=== PATIENT | female | born 1955 | race Caucasian/White ===

== ENCOUNTER → 2017-01-27 | Outpatient (CLI) | payer BC | LOC: LABWHC1 11:08 | PROVIDERS: ATTEND Family Medicine | DX: R06.00 Dyspnea, unspecified (principal) | CPT/HCPCS: 36415; 85379 ==

== ENCOUNTER → 2017-09-28 | Outpatient (CLI) | payer BC ==
--- NOTE | 2017-09-28 14:23 | MM ---
Reason for exam: screening (asymptomatic). Last mammogram was performed 2 years and 2 months ago. History: Patient is postmenopausal, has history of other cancer at age 57, and is nulliparous. Family history of breast cancer in maternal aunt. Physical Findings: A clinical breast exam by your physician is recommended on an annual basis and results should be correlated with mammographic findings. MG Screening Mammo w CAD Bilateral CC and MLO view(s) were taken. Prior study comparison: August 05, 2015, bilateral MG screening mammo w CAD. January 22, 2013, bilateral digital screening mammo w/CAD. The breast tissue is heterogeneously dense. This may lower the sensitivity of mammography. There is no discrete abnormality. ASSESSMENT: Negative, BI-RAD 1 RECOMMENDATION: Routine screening mammogram of both breasts in 1 year.
== END | disposition home or self-care (01) ==
LOC: RADMAMWWP 09:51
PROVIDERS: ATTEND Family Medicine
DX: Z12.31 Encounter for screening mammogram for malignant neoplasm of breast (principal)
CPT/HCPCS: 77067

== ENCOUNTER → 2019-12-27 | Outpatient (CLI) | payer BC ==
[2019-12-27 11:34] LABS: Basophils # (A) 0.1 k/uL (0-0.2); Basophils % (A) 2 %; Eosinophils # (A) 0.2 k/uL (0-0.7); Eosinophils % (A) 4 %; HCT 43.5 % (34.0-46.0); HGB 14.5 gm/dL (11.4-16.0); Lymphocytes # (A) 1.3 k/uL (1.0-4.8); Lymphocytes % (A) 25 %; MCH 31.9 pg (25.0-35.0); MCHC 33.4 g/dL (31.0-37.0); MCV 95.4 fL (80.0-100.0); Mean Platelet Volume 6.7; Monocytes # (A) 0.3 k/uL (0-1.0); Monocytes % (A) 5 %; Neutrophils # (A) 3.2 k/uL (1.3-7.7); Neutrophils % (A) 62 %; Platelet Count 212 k/uL (150-450); RBC 4.56 m/uL (3.80-5.40); RDW 13.3 % (11.5-15.5); WBC 5.1 k/uL (3.8-10.6)
== END | disposition home or self-care (01) ==
LOC: LABPAT 09:56
PROVIDERS: ATTEND Obstetrics & Gynecology
DX: Z01.818 Encounter for other preprocedural examination (principal); N95.0 Postmenopausal bleeding
CPT/HCPCS: 36415; 85025; 93005

== ENCOUNTER 2020-01-08 07:30 | Day surgery (SDC) | payer BC ==
[2020-01-03 16:26] VITALS: BMI 33.0
[~2020-01-08 07:30] MED LIST: DEXAMETHASONE SOD PHOSPHATE 10 MG/ML 1 ML VIAL IV ONE; HYDROmorphone 0.5 MG/0.5 ML SYRINGE IVP PRN; LACTATED RINGERS 1,000 ML IV SCH; LIDOCAINE 1% (10MG/ML) FOR IV START INTRADERMA PRN; ONDANSETRON 4 MG/2 ML VIAL IVP ONE; Pre Op ABX Message 1 EACH MISC MISCELLANE ONE; SCOPOLAMINE 1.5MG/72HR PATCH TRANSDERM ONE
[2020-01-08] MEDS ORDERED: ONDANSETRON 4 MG/2 ML VIAL ONE (07:50)
[2020-01-08] MEDS ORDERED: MIDAZOLAM 2 MG/2 ML VIAL IV ONE (08:25)
[2020-01-08] MEDS ORDERED: fentaNYL (PF) 50 MCG/ML 2 ML AMP ONE (10:19)
[2020-01-08] MEDS ORDERED: LIDOCAINE 1% INJ 10MG/ML (20 ML MDV) ONE (10:19)
[2020-01-08] MEDS ORDERED: MIDAZOLAM 2 MG/2 ML VIAL ONE (10:19)
[2020-01-08] MEDS ORDERED: PROPOFOL 10 MG/ML 20 ML VIAL IV ONE (10:19)
[2020-01-08] MEDS ORDERED: KETOROLAC 30 MG/ML 1 ML VIAL ONE (10:19)
[2020-01-08] MEDS ORDERED: LACTATED RINGERS 1,000 ML IV ONE (10:47)
[2020-01-08] MEDS ORDERED: SILVER NITRATE APPLICATOR 1 EACH STICK..EA. TOPICAL ONE (10:53)
--- NOTE | 2020-01-08 11:01 | P.OP ---
Date of Procedure: 01/08/20 Preoperative Diagnosis: Postmenopausal bleeding, thickened endometrium sonographically Postoperative Diagnosis: Same, cervical stenosis Procedure(s) Performed: Fractional D&C, hysteroscopy Anesthesia: DUGLASA Surgeon: Hannah Lopez Estimated Blood Loss (ml): 10 IV fluids (ml): 900 Urine output (ml): 500 Pathology: other (Endocervical and endometrial curettings) Condition: stable Disposition: PACU Operative Findings: Cervical stenosis. Essentially negative appearing cavity without polyps, fibroids, or excessive tissue. Description of Procedure: Patient is brought to the operating suite where a general anesthetic is administered. She's placed in the dorsal lithotomy position. The cervix, vagina, perineal bodies are all prepped and draped in usual sterile fashion. The appropriate timeout is performed to assure proper patient and procedural identification. Bladder is drained for approximate 500 mL of clear yellow urine. The weighted speculum was placed into the vagina. The anterior lip of the cervix is grasped with a double-tooth tenaculum.. A Kevorkian curette is used and scant amount of endocervical curettings are sent to pathology. I am able to traverse the cervix with the sound, therefore the small lacrimal probes are used and the cervix is eventually dilated gently. Uterus then sounds to a depth of 6 cm. Cervix is systematically dilated using Hanks dilators. The hysteroscope was placed and the cavity is distended with sterile saline. No obvious polyps, fibroids, or excessive tissue was noted. The hysteroscope was removed. A small sharp curette is used and a scant amount of endometrial curettings are procured. The hysteroscope was replaced and the cavity appears to be completely curetted. Instrumentation is removed from the cervix. Nitrous stick is used on the anterior lip for a small perforation from the double-tooth tenaculum. Hemostasis is excellent. All sponge needle and enhancement counts are correct. Patient is brought back to the recovery room in very good condition with stable vital signs including a blood pressure of 167/94, pulse 64, 95% O2 saturation. Patient is given Toradol prior to leaving the operating room. She will follow- up with me in the office in 2 weeks.
[2020-01-08 11:06] VITALS: TEMP 97.9
[2020-01-08 12:05] VITALS: BP 139/75; PULSE 64; RESP 20
== END 2020-01-08 13:00 | disposition home or self-care (01) ==
LOC: OR 07:30
PROVIDERS: ATTEND Obstetrics & Gynecology
DX: N95.0 Postmenopausal bleeding (principal); N88.2 Stricture and stenosis of cervix uteri; N80.9 Endometriosis, unspecified; N73.9 Female pelvic inflammatory disease, unspecified; R93.89 Abnormal findings on diagnostic imaging of other specified body structures; I34.1 Nonrheumatic mitral (valve) prolapse; C82.10 Follicular lymphoma grade II, unspecified site; F41.9 Anxiety disorder, unspecified; Z79.899 Other long term (current) drug therapy; Z98.890 Other specified postprocedural states; Z91.041 Radiographic dye allergy status; Z82.49 Family history of ischemic heart disease and other diseases of the circulatory system; Z80.6 Family history of leukemia; Z80.8 Family history of malignant neoplasm of other organs or systems; Z80.49 Family history of malignant neoplasm of other genital organs; Z80.41 Family history of malignant neoplasm of ovary; Z87.891 Personal history of nicotine dependence
CPT/HCPCS: 88305; 58558; J2250; J1100; J2405; J2001; J3010; J1885; J2704; J1170

== ENCOUNTER → 2022-07-01 | Outpatient (CLI) | payer MEDICARE, BC ==
--- NOTE | 2022-07-01 16:24 | P.SLEEP ---
History of Present Illness DATE: 07/01/2022 CONSULTATION/NEW PATIENT EVALUATION HISTORY OF PRESENT ILLNESS/SLEEP-WAKE EVALUATION: 66-year-old lady had been evaluated in the sleep center for a restless sleep and possible obstructive sleep apnea hypopnea syndrome. SLEEP SCHEDULE: Usually sleep schedule from 1012 until 5 AM. Patient often sleeps about 5 hours only. FALLING ASLEEP: No problems with falling asleep, no TV in bedroom. DURING SLEEP: Positive history of snoring and multiple awakenings from sleep up to 3 times with up to 2 episodes of nocturia. No history of hypnogogical hallucinations, sleep paralysis, or cataplexy. DURING THE DAY/WAKE STATE: Nervousness and anxiety during the day. [place] sleepiness scale is 1. Usually patient doesn't take any naps. PAST MEDICAL HISTORY: Anxiety, hypertension in offices, follicular lymphoma treated by chemotherapy in 2018, endometriosis. PAST SURGICAL HISTORY: Bilateral cataract surgery 2017, surgery for removing benign tumor from uterus. MEDICATIONS: Alprazolam 0.25 mg as needed, Terrell saline nasal mist as needed. SOCIAL HISTORY: Negative for smoking for more than 50 years, alcohol consumption occasional. FAMILY HISTORY: Hypertension, stroke, cancer. REVIEW OF SYSTEMS: Snoring, multiple awakenings from sleep. No fevers. No double vision. No recent chest pain. No shortness of breath. No abdominal pain. No bleeding episodes. No blood in urine. No seizure episodes. PHYSICAL EXAMINATION: GENERAL: A pleasant patient without any distress. VITAL SIGNS: BP 173/97 , HR 74 , RR 18 , weight 206.6 pounds, height 5 foot 5-3/4 inches, body mass index 33.9 . HEENT: PERRLA, EOMI. Evaluation of oropharynx showed tongue protrudes midline, low position of soft palate Mallampati 23. NECK: Supple. No JVD. Thyroid is not palpable. 15.5 inches in circumference. LUNGS: Clear to percussion and to auscultation. Good air exchange. No wheezing or rhonchi. HEART: S1, S2 regular. No murmurs, gallops or rubs. ABDOMEN: Soft and nontender. Bowel sounds are present. No organomegaly appreciated. EXTREMITIES: No clubbing or cyanosis. COMMUNITY DEVELOPMENT DIRECTOR: Awake, alert, and oriented x3. Cranial nerves 2 to 7 intact. There is no fasciculation or atrophy noted. No focal deficits observed. ASSESSMENT: 1. Snoring, multiple awakenings from sleep, moderately low position of soft palate. Possible obstructive sleep apnea hypopnea syndrome. 2. Patient always sleeps short period of time. 3. Significant hypertension in the office. 4. Anxiety. 5 history of follicular lymphoma treated by chemotherapy in 2018. 6 . Status post bilateral cataract surgery. 7. History of endometriosis status post removing mask from uterus. PLAN: 1. Polysomnography for evaluation of patient's breathing during sleep. 2. CPAP/BiPAP titration if sleep study confirms obstructive sleep apnea- hypopnea syndrome. 3. Preferable position during sleep on the side. 4. No driving if patient feels any sleepiness. Patient is aware of civil and criminal liability for unsafe driving. 5. Sleep hygiene with regular sleep time for at least 7.5-8 hours. 6. Watching weight. Thank you very much for referring this patient for consultation. Sincerely, Kota Argueta MD, PhD, FAASM. Diplomat of [place] [employer], Sleep Medicine Board by [place] [employer] [place] [employer]ing Wheel Operator [employer] [facility] [place] Medications and Allergies Home Medications Medication Instructions Recorded Confirmed Type ALPRAZolam [Xanax] 0.25 mg PO BID PRN 01/03/20 01/03/20 History Acyclovir [Zovirax] 400 mg PO BID 01/03/20 01/03/20 History Sulfamethoxazole/Trimethoprim 1 tab PO MOWEFR 01/03/20 01/03/20 History [Sulfamethoxazole-Tmp Ds Tablet] Allergies Allergy/AdvReac Type Severity Reaction Status Date / Time Iodinated Contrast Media Allergy Rapid Verified 01/08/20 07:41 Heart Rate Sleep Note - Sleep Note Sleep Note: Temperature: Pulse Rate: Respiratory Rate: Blood Pressure: SpO2: Height: Weight: BMI: Neck Circumference:
== END ==
LOC: SLEEP 15:36
PROVIDERS: ATTEND Internal Medicine
DX: I10 Essential (primary) hypertension (principal); R06.83 Snoring; F41.9 Anxiety disorder, unspecified; Z98.890 Other specified postprocedural states; Z85.79 Personal history of other malignant neoplasms of lymphoid, hematopoietic and related tissues; Z92.21 Personal history of antineoplastic chemotherapy; Z91.041 Radiographic dye allergy status
CPT/HCPCS: 99211

== ENCOUNTER 2022-12-03 15:55 | Emergency (ER) | payer MEDICARE, BC ==
[2022-12-03] MEDS ORDERED: SODIUM CHLORIDE 0.9% 1,000 ML IV STA (15:57)
[2022-12-03] MEDS ORDERED: SODIUM CHLORIDE 0.9% 500 ML 500 ML IV STA (15:57)
--- NOTE | 2022-12-03 16:01 | ED ---
Arrhythmia/Palpitations HPI - General Stated Complaint: tachycardia Time Seen by Provider: 12/03/22 15:57 Source: RN notes reviewed, old records reviewed Limitations: no limitations - History of Present Illness Initial Comments: This is a 67-year-old female ER. Patient presents today for evaluation regards to elevated heart rate. Patient has had multiple events in the past few weeks. Patient's tonight lasted longer than normal. During route by EMS patient was asked to bear down and after she did bear down she felt much better and per EMS her heart rate returned to normal. MD Complaint: rapid heart beat, "heart racing", "skipped beats", palpitations, irregular heart beat -: hour(s) Context: occurred during rest Associated Symptoms: denies other symptoms Treatments Prior to Arrival: vagal maneuvers (Back maneuver prior to arrival) - Related Data Home Medications Medication Instructions Recorded Confirmed ALPRAZolam [Xanax] 0.25 mg PO BID PRN 01/03/20 01/03/20 Acyclovir [Zovirax] 400 mg PO BID 01/03/20 01/03/20 Sulfamethoxazole/Trimethoprim 1 tab PO MOWEFR 01/03/20 01/03/20 [Sulfamethoxazole-Tmp Ds Tablet] Allergies Allergy/AdvReac Type Severity Reaction Status Date / Time Iodinated Contrast Media Allergy Rapid Verified 01/08/20 07:41 Heart Rate z Allergy Rapid Uncoded 12/03/22 16:17 Heart Rate Review of Systems ROS Statement: Those systems with pertinent positive or pertinent negative responses have been documented in the HPI. ROS Other: All systems not noted in ROS Statement are negative. General Exam General appearance: alert, in no apparent distress, anxious Head exam: Present: atraumatic, normocephalic, normal inspection Eye exam: Present: normal appearance, PERRL, EOMI. Absent: scleral icterus, conjunctival injection, periorbital swelling ENT exam: Present: normal exam, mucous membranes moist Neck exam: Present: normal inspection. Absent: tenderness, meningismus, lymphadenopathy Respiratory exam: Present: normal lung sounds bilaterally. Absent: respiratory distress, wheezes, rales, rhonchi, stridor Cardiovascular Exam: Present: regular rate, normal rhythm, normal heart sounds. Absent: systolic murmur, diastolic murmur, rubs, gallop, clicks GI/Abdominal exam: Present: soft, normal bowel sounds. Absent: distended, tenderness, guarding, rebound, rigid Extremities exam: Present: normal inspection, full ROM, normal capillary refill. Absent: tenderness, pedal edema, joint swelling, calf tenderness Back exam: Present: normal inspection Neurological exam: Present: alert, oriented X3, CN II-XII intact Psychiatric exam: Present: normal affect, normal mood Skin exam: Present: warm, dry, intact, normal color. Absent: rash Course Vital Signs 12/03/22 12/03/22 12/03/22 15:59 16:00 18:03 Temperature 99.4 F Pulse Rate 94 70 Pulse Rate [ 95 [place] [employer] ] Respiratory 20 18 Rate Blood Pressure 183/107 158/97 O2 Sat by Pulse 95 96 Oximetry - Reevaluation(s) Reevaluation #1: 12/03/22 17:07 Medical records reviewed Reevaluation #2: 12/03/22 17:07 Patient symptoms remained improved Reevaluation #3: 12/03/22 17:07 Patient informed results questions answered Patient prefers discharge over audio/video engineer evaluation Reevaluation #4: 12/03/22 18:03 Was pt. sent in by a medical professional or institution? @ -no Did you speak to anyone other than the patient for history? @ -no Did you review nursing and triage notes? @ -agree Were old charts reviewed? @ -no Differential Diagnosis? @ -prior EKG interpreted by me (3pts min.)? @ -yes X-rays interpreted by me (1pt min.)? @ -no CT interpreted by me (1pt min.)? @ -no U/S interpreted by me (1pt. min.)? @ -no What testing was considered but not performed? (CT, X-rays, U/S, labs)? Why? @ -no What meds were considered but not given? Why? @ -no Did you discuss the management of the patient with other professionals? @ -no Did you reconcile home meds? @ -no Was smoking cessation discussed for >3mins.? @ -no Was critical care preformed (if so, how long)? @ -no Were there social determinants of health that impacted care today? How? (Homelessness, low income, unemployed, alcoholism, drug addiction, transportation, low edu. Level, literacy, decrease access to med. care, half-way, rehab)? @ -no Was there de-escalation of care discussed even if they declined? (Discuss DNR or withdrawal of care, Hospice)? @ -no What co-morbidities impacted this encounter? (DM, HTN, Smoking, COPD, CAD, Cancer, CVA, Hep., AIDS, mental health diagnosis, sleep apnea, morbid obesity)? @ -none Was patient admitted / discharged? @ -67 female to the emergency department for evaluation of abnormal heart rate palpitations increase rate prior to arrival, no EKG the rhythm strip does show possibility of atrial fibrillation. Patient does not fknow when shes been in sinus rhythm since medication maneuver. Patient again has persistent normal heart rate feels improved and will be discharged to follow-up with a audio/video engineer Discharge Undiagnosed new problem with uncertain prognosis? @ -no Drug Therapy requiring intensive monitoring for toxicity (Heparin, Nitro, Ins ulin, Cardizem)? @ -no Were any procedures done? @ -no Diagnosis/symptom? @ -Acute arrhythmia and palpitations Acute, or Chronic, or Acute on Chronic? @ -Acute Uncomplicated (without systemic symptoms) or Complicated (systemic symptoms)? @ -uncomplicated Side effects of treatment? @ -no Exacerbation, Progression, or Severe Exacerbation] @ -no Poses a threat to life or bodily function? @ -ES with arrhythmia Reevaluation #5: 12/03/22 18:03 Differential Chest Pain: Stable Angina, Unstable Angina, STEMI, NSTEMI Aortic Dissection, Pneumothorax, Musculoskeletal, Esophageal Spasm GERD, Cholecystitis, Pancreatitis, Zoster, this is not meant to be an all-inclusive list. EKG Findings - EKG Comments: EKG Findings:: EKG is sinus 85 VA 162 QRS 107 QTc 417 - EKG Results: EKG: interpreted by ERMD Medical Decision Making - Medical Decision Making 67 female to the emergency department for evaluation of abnormal heart rate palpitations increase rate prior to arrival, no EKG the rhythm strip does show possibility of atrial fibrillation. Patient does not fknow when shes been in sinus rhythm since medication maneuver. Patient again has persistent normal he art rate feels improved and will be discharged to follow-up with a audio/video engineer - Lab Data Result diagrams: 12/03/22 16:22 12/03/22 16:22 Lab Results 12/03/22 12/03/22 12/03/22 Range/Units 16:22 16:22 16:22 WBC 7.1 (3.8-10.6) k/uL RBC 4.78 (3.80-5.40) m/uL Hgb 14.6 (11.4-16.0) gm/dL Hct 44.6 (34.0-46.0) % MCV 93.3 (80.0-100.0) fL MCH 30.6 (25.0-35.0) pg MCHC 32.8 (31.0-37.0) g/dL RDW 13.2 (11.5-15.5) % Plt Count 217 (150-450) k/uL MPV 7.0 Neutrophils % 70 % Lymphocytes % 21 % Monocytes % 4 % Eosinophils % 3 % Basophils % 1 % Neutrophils # 5.0 (1.3-7.7) k/uL Lymphocytes # 1.5 (1.0-4.8) k/uL Monocytes # 0.3 (0-1.0) k/uL Eosinophils # 0.2 (0-0.7) k/uL Basophils # 0.0 (0-0.2) k/uL PT 10.0 (9.0-12.0) sec INR 0.9 (<1.2) APTT 24.5 (22.0-30.0) sec D-Dimer 0.34 (<0.60) mg/L FEU Sodium 141 (137-145) mmol/L Potassium 4.1 (3.5-5.1) mmol/L Chloride 107 (98-107) mmol/L Carbon Dioxide 25 (22-30) mmol/L Anion Gap 9 mmol/L BUN 16 (7-17) mg/dL Creatinine 0.66 (0.52-1.04) mg/dL Est GFR (CKD-EPI)AfAm >90 (>60 ml/min/1.73 sqM) Est GFR (CKD-EPI)NonAf >90 (>60 ml/min/1.73 sqM) Glucose 178 H (74-99) mg/dL Calcium 9.4 (8.4-10.2) mg/dL Phosphorus 2.7 (2.5-4.5) mg/dL Magnesium 2.0 (1.6-2.3) mg/dL Total Bilirubin 0.3 (0.2-1.3) mg/dL AST 23 (14-36) U/L ALT 26 (4-34) U/L Alkaline Phosphatase 63 (38-126) U/L Troponin I (0.000-0.034) ng/mL NT-Pro-B Natriuret Pep pg/mL Total Protein 7.1 (6.3-8.2) g/dL Albumin 4.2 (3.5-5.0) g/dL TSH 3.100 (0.465-4.680) mIU/L 12/03/22 12/03/22 Range/Units 16:22 16:22 WBC (3.8-10.6) k/uL RBC (3.80-5.40) m/uL Hgb (11.4-16.0) gm/dL Hct (34.0-46.0) % MCV (80.0-100.0) fL MCH (25.0-35.0) pg MCHC (31.0-37.0) g/dL RDW (11.5-15.5) % Plt Count (150-450) k/uL MPV Neutrophils % % Lymphocytes % % Monocytes % % Eosinophils % % Basophils % % Neutrophils # (1.3-7.7) k/uL Lymphocytes # (1.0-4.8) k/uL Monocytes # (0-1.0) k/uL Eosinophils # (0-0.7) k/uL Basophils # (0-0.2) k/uL PT (9.0-12.0) sec INR (<1.2) APTT (22.0-30.0) sec D-Dimer (<0.60) mg/L FEU Sodium (137-145) mmol/L Potassium (3.5-5.1) mmol/L Chloride (98-107) mmol/L Carbon Dioxide (22-30) mmol/L Anion Gap mmol/L BUN (7-17) mg/dL Creatinine (0.52-1.04) mg/dL Est GFR (CKD-EPI)AfAm (>60 ml/min/1.73 sqM) Est GFR (CKD-EPI)NonAf (>60 ml/min/1.73 sqM) Glucose (74-99) mg/dL Calcium (8.4-10.2) mg/dL Phosphorus (2.5-4.5) mg/dL Magnesium (1.6-2.3) mg/dL Total Bilirubin (0.2-1.3) mg/dL AST (14-36) U/L ALT (4-34) U/L Alkaline Phosphatase (38-126) U/L Troponin I <0.012 (0.000-0.034) ng/mL NT-Pro-B Natriuret Pep 53 pg/mL Total Protein (6.3-8.2) g/dL Albumin (3.5-5.0) g/dL TSH (0.465-4.680) mIU/L - EKG Data -: EKG Interpreted by Me Disposition Clinical Impression: Palpitations, Tachycardia, Supraventricular tachycardia Disposition: HOME SELF-CARE Condition: Good Instructions (If sedation given, give patient instructions): Supraventricular Tachycardia (ED), Heart Palpitations (ED) Is patient prescribed a controlled substance at d/c from ED?: No Referrals: Stefano Holguin MD [Primary Care Provider] - 1-2 days Time of Disposition: 17:50
[2022-12-03 16:19] VITALS: TEMP 99.4
[2022-12-03 16:38] LABS: Basophils % (A) 1 %; Eosinophils # (A) 0.2 k/uL (0-0.7); Eosinophils % (A) 3 %; HCT 44.6 % (34.0-46.0); HGB 14.6 gm/dL (11.4-16.0); Lymphocytes # (A) 1.5 k/uL (1.0-4.8); Lymphocytes % (A) 21 %; MCH 30.6 pg (25.0-35.0); MCHC 32.8 g/dL (31.0-37.0); MCV 93.3 fL (80.0-100.0); Monocytes # (A) 0.3 k/uL (0-1.0); Monocytes % (A) 4 %; Neutrophils % (A) 70 %; Platelet Count 217 k/uL (150-450); RBC 4.78 m/uL (3.80-5.40); RDW 13.2 % (11.5-15.5); WBC 7.1 k/uL (3.8-10.6)
[2022-12-03 17:02] LABS: ALT 26 U/L (4-34); AST 23 U/L (14-36); African American GFR (CKD) >90 (>60 ml/min/1.73 sqM); Albumin 4.2 g/dL (3.5-5.0); Alkaline Phosphatase 63 U/L (38-126); Anion Gap 9 mmol/L; Blood Urea Nitrogen 16 mg/dL (7-17); Calcium 9.4 mg/dL (8.4-10.2); Carbon Dioxide 25 mmol/L (22-30); Chloride 107 mmol/L (98-107); Glucose 178 mg/dL (74-99); Non-African American GFR(CKD) >90 (>60 ml/min/1.73 sqM); Phosphorus 2.7 mg/dL (2.5-4.5); Potassium 4.1 mmol/L (3.5-5.1); Sodium 141 mmol/L (137-145); Total Bilirubin 0.3 mg/dL (0.2-1.3); Total Protein 7.1 g/dL (6.3-8.2)
[2022-12-03 17:19] LABS: INR 0.9 (<1.2); Partial Thromboplastin Time 24.5 sec (22.0-30.0)
[2022-12-03 18:09] VITALS: BP 158/97; PULSE 70; RESP 18
== END 2022-12-03 18:09 | disposition home or self-care (01) ==
LOC: EC 15:55
DX: I47.1 Supraventricular tachycardia (principal); R00.2 Palpitations; Z91.041 Radiographic dye allergy status
CPT/HCPCS: 36415; 80053; 83735; 83880; 84100; 84443; 84484; 85025; 85379; 85610; 85730; 93005; 96360; 99285

== ENCOUNTER → 2022-12-30 | Outpatient (CLI) | payer MEDICARE, BC ==
--- NOTE | 2022-12-30 18:19 | P.PN ---
Subjective DATE: 12/30/2022 FOLLOW UP VISIT. Patient with obstructive sleep apnea hypopnea syndrome return to sleep center for follow-up visit. Recently patient had sleep study which documented obstructive sleep apnea hypopnea syndrome. Patient was initiated on PAP therapy and today is first visit after treatment was started. Patient was able to use PAP equipment every night for the whole night. The patient does not have significant problems with the mask, PAP pressure and humidification. [place] sleepiness scale is 3. I checked information from PAP unit. PAP unit pressure 5-9, average 8.0 cm H2O. Usage is 97 % for more then 4 hours, average 6 hours per night. Leak is 7.0 l/m, which is in acceptable range. Apnea Hypopnea Index is 0.2, which is normal. MEDICATIONS:1. Alprazolam 0.25 mg as needed 2. Losartan 50 mg once a day During physical exam: GENERAL: A pleasant patient without any distress. VITAL SIGNS: BP 188/103, HR 79, RR 16 , weight 206.0, temperature 96.8, oxygen saturation at room air 99 . HEENT: PERRLA, EOMI.low position of soft palate, Mallapati 2-3 . NECK: Supple. No JVD. LUNGS: Clear to percussion and to auscultation. Good air exchange. No wheezing or rhonchi. HEART: S1, S2 regular. ABDOMEN: Soft and nontender.[] EXTREMITIES: No clubbing or cyanosis. MOVEMENT THERAPIST: Awake, alert, and oriented x3. No focal deficit. Impressions: 1. Obstructive sleep apnea-hypopnea syndrome. Patient demonstrated great compliance with treatment, benefiting from treatment. 2. Hypertension. 3. Anxiety. 4. History of follicular lymphoma treated by chemotherapy in 2018. 5. Status post bilateral cataract surgery. 6. History of endometriosis, status post surgical treatment. Plan: 1. Continue using PAP equipment every night for the whole night. 2. To change air filter at least 1-2 times per month. 3. PAP unit should stay lower then position of the head. 4. Advised patient to remove all remaining water from humidifier canister daily and make it dry after each usage. Refill canister with fresh distilled water before each usage. 5. Sleep hygiene with regular time in bed for at least 8 hours. 6. Precautions related to driving. No driving if feel any sleepiness. 7. I will maintain prescription for PAP supplies including mask, tube, filters. 8. Follow up visit in 6 months or earlier if patient has any problems. 9. Watching weight. Thank you very much for allowing me to participate in the management of your patient. Kota Argueta MD, PhD, FAASM. Diplomat of [place] [employer], Sleep Medicine Board by [place] [employer] Pool Lifeguard [facility] [place]
== END ==
LOC: 3 N SLEEP 15:12
PROVIDERS: ATTEND Internal Medicine
DX: G47.33 Obstructive sleep apnea (adult) (pediatric) (principal); F41.9 Anxiety disorder, unspecified; I10 Essential (primary) hypertension; Z79.899 Other long term (current) drug therapy; Z85.72 Personal history of non-Hodgkin lymphomas; Z92.21 Personal history of antineoplastic chemotherapy; Z98.890 Other specified postprocedural states; Z99.89 Dependence on other enabling machines and devices; Z91.041 Radiographic dye allergy status; Z88.8 Allergy status to other drugs, medicaments and biological substances
CPT/HCPCS: 99212

== ENCOUNTER 2023-02-09 18:46 | Emergency (ER) | payer MEDICARE, BC ==
[2023-02-09] MEDS ORDERED: SODIUM CHLORIDE 0.9% 1,000 ML IV STA (20:52)
[2023-02-09] MEDS ORDERED: MECLIZINE 12.5 MG TAB PO STA ×2 (20:52→23:31)
[2023-02-09 22:14] LABS: Basophils # (A) 0.1 k/uL (0-0.2); Basophils % (A) 1 %; Eosinophils # (A) 0.2 k/uL (0-0.7); Eosinophils % (A) 2 %; HCT 43.4 % (34.0-46.0); HGB 14.8 gm/dL (11.4-16.0); Lymphocytes # (A) 1.3 k/uL (1.0-4.8); Lymphocytes % (A) 13 %; MCH 31.4 pg (25.0-35.0); MCHC 34.1 g/dL (31.0-37.0); MCV 92.2 fL (80.0-100.0); Mean Platelet Volume 7.6; Monocytes # (A) 0.4 k/uL (0-1.0); Monocytes % (A) 4 %; Neutrophils % (A) 80 %; Platelet Count 201 k/uL (150-450); RBC 4.71 m/uL (3.80-5.40); RDW 13.3 % (11.5-15.5); WBC 10.1 k/uL (3.8-10.6)
[2023-02-09 22:27] LABS: ALT 26 U/L (4-34); AST 23 U/L (14-36); African American GFR (CKD) 89 (>60 ml/min/1.73 sqM); Albumin 4.4 g/dL (3.5-5.0); Alkaline Phosphatase 65 U/L (38-126); Anion Gap 7 mmol/L; Blood Urea Nitrogen 14 mg/dL (7-17); Carbon Dioxide 27 mmol/L (22-30); Chloride 106 mmol/L (98-107); Glucose 138 mg/dL (74-99); Non-African American GFR(CKD) 77 (>60 ml/min/1.73 sqM); Potassium 4.4 mmol/L (3.5-5.1); Sodium 140 mmol/L (137-145); Total Bilirubin 0.6 mg/dL (0.2-1.3); Total Protein 7.6 g/dL (6.3-8.2)
--- NOTE | 2023-02-09 23:38 | ED ---
General Adult HPI - General Chief complaint: Dizziness Stated complaint: Dizziness Time Seen by Provider: 02/09/23 19:16 Source: patient Mode of arrival: ambulatory Limitations: no limitations - History of Present Illness Initial comments: 67-year-old female past medical history of lymphoma to the emergency department reporting dizziness. She states that she was crying yesterday due to the loss of a pet. Woke up this morning and felt extremely congested which she attributed to her crying all day. She took an Cammy and states that shortly afterwards she had sudden onset of room spinning sensation. States that it is worse when she looks to the right. She denies any head injury. No visual changes. No headache. Denies any recent head trauma. Denies lateralizing weakness. No history of stroke. She did not take anything to help alleviate her symptoms. No history of vertigo. Called an ambulance as she could not get up and walk straight. She does not take any blood thinners. No other alleviating, precipitating or modifying factors - Related Data Home Medications Medication Instructions Recorded Confirmed ALPRAZolam [Xanax] 0.25 mg PO BID PRN 01/03/20 01/03/20 Acyclovir [Zovirax] 400 mg PO BID 01/03/20 01/03/20 Sulfamethoxazole/Trimethoprim 1 tab PO MOWEFR 01/03/20 01/03/20 [Sulfamethoxazole-Tmp Ds Tablet] Previous Rx's Medication Instructions Recorded Carbamide Peroxide [Debrox Otic] 5 drops BOTH EARS BID #15 ml 02/09/23 Furosemide [Lasix] 20 mg PO DAILY #5 tab 02/09/23 Meclizine [Antivert] 25 mg PO TID PRN #30 tab 02/09/23 Allergies Allergy/AdvReac Type Severity Reaction Status Date / Time Iodinated Contrast Media Allergy Rapid Verified 02/10/23 00:47 Heart Rate z Allergy Rapid Uncoded 12/03/22 16:17 Heart Rate Review of Systems ROS Statement: Those systems with pertinent positive or pertinent negative responses have been documented in the HPI. ROS Other: All systems not noted in ROS Statement are negative. Past Medical History Past Medical History: Cancer, Hypertension Additional Past Medical History / Comment(s): lymphnode cancer, endometriosis History of Any Multi-Drug Resistant Organisms: None Reported Additional Past Surgical History / Comment(s): endometriosis surgery-removed a mass, cyst removal on right wrist Past Psychological History: Anxiety Smoking Status: Former smoker Past Alcohol Use History: Daily Past Drug Use History: Marijuana General Exam Limitations: no limitations General appearance: alert, in no apparent distress Head exam: Present: atraumatic, normocephalic, normal inspection Eye exam: Present: PERRL, EOMI, nystagmus (Horizontal, worse with rightward gaze). Absent: scleral icterus, conjunctival injection, periorbital swelling ENT exam: Present: mucous membranes moist, other (Cerumen impaction right ear) Neck exam: Present: normal inspection. Absent: tenderness, meningismus, lymphadenopathy Respiratory exam: Present: normal lung sounds bilaterally. Absent: respiratory distress, wheezes, rales, rhonchi, stridor Cardiovascular Exam: Present: regular rate, normal rhythm, normal heart sounds. Absent: systolic murmur, diastolic murmur, rubs, gallop, clicks GI/Abdominal exam: Present: soft, normal bowel sounds. Absent: distended, tenderness, guarding, rebound, rigid Extremities exam: Present: normal inspection, full ROM, normal capillary refill. Absent: tenderness, pedal edema, joint swelling, calf tenderness Back exam: Present: normal inspection Neurological exam: Present: alert, oriented X3, CN II-XII intact, abnormal gait (Patient is extremely off balance upon ambulation) Psychiatric exam: Present: normal affect, normal mood Skin exam: Present: warm, dry, intact, normal color. Absent: rash Course Vital Signs 02/09/23 02/09/23 02/09/23 18:47 22:57 23:44 Temperature 98.6 F 98.1 F Pulse Rate 89 70 72 Respiratory 18 16 18 Rate Blood Pressure 179/92 148/99 138/79 O2 Sat by Pulse 96 97 99 Oximetry Medical Decision Making - Medical Decision Making Was pt. sent in by a medical professional or institution (, PA, GEOMORPHOLOGY TEACHER, urgent care, hospital, or senior living...) When possible be specific @ -No Did you speak to anyone other than the patient for history (EMS, parent, family, police, friend...)? What history was obtained from this source @ -EMS provided history Did you review nursing and triage notes (agree or disagree)? Why? @ -I reviewed and agree with nursing and triage notes Were old charts reviewed (outside hosp., previous admission, EMS record, old EKG, old radiological studies, urgent care reports/EKG's, senior living records)? Report findings @ -No old charts were reviewed Differential Diagnosis (chest pain, altered mental status, abdominal pain women, abdominal pain men, vaginal bleeding, weakness, fever, dyspnea, syncope, headache, dizziness, GI bleed, back pain, seizure, CVA, palpatations, mental health, musculoskeletal)? @ -Differential Dizziness: Benign paroxysmal positional Vertigo, Menieres disease, otitis media, acoustic neuroma, vertebrobasilar insufficiency, cerebellar stroke, encephalitis, hypovolemic, arrhythmia, coronary artery syndrome, anemia, this is not meant to be an all-inclusive list EKG interpreted by me (3pts min.). @ -Yes and demonstrates sinus rhythm with a rate of 63. IN interval 186. QRS 102. QTC of 418. No acute ST segment elevations or depressions X-rays interpreted by me (1pt min.). @ -None done CT interpreted by me (1pt min.). @ -None done U/S interpreted by me (1pt. min.). @ -None done What testing was considered but not performed or refused? (CT, X-rays, U/S, labs)? Why? @ -Ct of the brain however discussed with patient after meclizine administration and patient is markedly improved. Patient is able to ambulate around the emergency department without assistance What meds were considered but not given or refused? Why? @ -None Did you discuss the management of the patient with other professionals (professionals i.e. , PA, GEOMORPHOLOGY TEACHER, lab, RT, psych nurse, social media analyst, clay products glazer, teacher, associate loan officer, watch case polisher)? Give summary @ -No Was smoking cessation discussed for >3mins.? @ -No Was critical care preformed (if so, how long)? @ -No Were there social determinants of health that impacted care today? How? (Homel essness, low income, unemployed, alcoholism, drug addiction, transportation, low edu. Level, literacy, decrease access to med. care, care home, rehab)? @ -No Was there de-escalation of care discussed even if they declined (Discuss DNR or withdrawal of care, Hospice)? DNR status @ -No What co-morbidities impacted this encounter? (DM, HTN, Smoking, COPD, CAD, Cancer, CVA, ARF, Chemo, Hep., AIDS, mental health diagnosis, sleep apnea, morbid obesity)? @ -None Was patient admitted / discharged? Hospital course, mention meds given and route, prescriptions, significant lab abnormalities, going to OR and other pertinent info. @ -On arrival patient was placed in a hallway 11. A thorough history and physical exam was performed per patient does have cerumen impaction in the right ear. This is irrigated and removed with a curette. Laboratory studies were conducted. Patient was given a dose of meclizine laboratory studies are reviewed and within normal limits. Results are discussed with the patient. After the dose of meclizine the patient is able to get up and ambulate around the emergency department. States her symptoms have improved by 80%. I did discuss imaging however patient has had marked improvement with medication administration and would like to defer studies at this time. She will be given a dose of meclizine to take home. Also be prescribed meclizine. As she reports to significant ear congestion she will be placed on Lasix for the next 5 days starting tomorrow. I also prescribed Debrox ear drops. Follow up with her doctor in 2-4 days. Return for any new or worsening symptoms. If her symptoms becomes persistent she may need to ENT. Patient was agreeable to this. She was discharged ambulatory in stable condition Undiagnosed new problem with uncertain prognosis? @ -yes Drug Therapy requiring intensive monitoring for toxicity (Heparin, Nitro, Insulin, Cardizem)? @ -No Were any procedures done? @ -No Diagnosis/symptom? @ -Acute vertigo, right cerumen impaction Acute, or Chronic, or Acute on Chronic? @ -Acute Uncomplicated (without systemic symptoms) or Complicated (systemic symptoms)? @ -Complicated Side effects of treatment? @ -No Exacerbation, Progression, or Severe Exacerbation? @ -No Poses a threat to life or bodily function? How? (Chest pain, [place], [place], pneumonia, PE, COPD, DKA, ARF, appy, cholecystitis, CVA, Diverticulitis, Homicidal, Suicidal, threat to staff... and all critical care pts) @ -No - Lab Data Result diagrams: 02/09/23 22:02 02/09/23 22:02 Lab Results 02/09/23 02/09/23 02/09/23 Range/Units 22:02 22:02 22:02 WBC 10.1 (3.8-10.6) k/uL RBC 4.71 (3.80-5.40) m/uL Hgb 14.8 (11.4-16.0) gm/dL Hct 43.4 (34.0-46.0) % MCV 92.2 (80.0-100.0) fL MCH 31.4 (25.0-35.0) pg MCHC 34.1 (31.0-37.0) g/dL RDW 13.3 (11.5-15.5) % Plt Count 201 (150-450) k/uL MPV 7.6 Neutrophils % 80 % Lymphocytes % 13 % Monocytes % 4 % Eosinophils % 2 % Basophils % 1 % Neutrophils # 8.0 H (1.3-7.7) k/uL Lymphocytes # 1.3 (1.0-4.8) k/uL Monocytes # 0.4 (0-1.0) k/uL Eosinophils # 0.2 (0-0.7) k/uL Basophils # 0.1 (0-0.2) k/uL Sodium 140 (137-145) mmol/L Potassium 4.4 (3.5-5.1) mmol/L Chloride 106 (98-107) mmol/L Carbon Dioxide 27 (22-30) mmol/L Anion Gap 7 mmol/L BUN 14 (7-17) mg/dL Creatinine 0.79 (0.52-1.04) mg/dL Est GFR (CKD-EPI)AfAm 89 (>60 ml/min/1.73 sqM) Est GFR (CKD-EPI)NonAf 77 (>60 ml/min/1.73 sqM) Glucose 138 H (74-99) mg/dL Calcium 9.0 (8.4-10.2) mg/dL Total Bilirubin 0.6 (0.2-1.3) mg/dL AST 23 (14-36) U/L ALT 26 (4-34) U/L Alkaline Phosphatase 65 (38-126) U/L Troponin I <0.012 (0.000-0.034) ng/mL Total Protein 7.6 (6.3-8.2) g/dL Albumin 4.4 (3.5-5.0) g/dL Disposition Clinical Impression: Vertigo Disposition: HOME SELF-CARE Condition: Stable Instructions (If sedation given, give patient instructions): Vertigo (ED) Additional Instructions: Take the Antivert as needed for dizziness. Use the Lasix for the next 5 days. Use the eardrops daily. Follow-up with your primary care doctor in 2-4 days. Return for any new or worsening symptoms Prescriptions: Meclizine [Antivert] 25 mg PO TID PRN #30 tab PRN Reason: Vertigo Carbamide Peroxide [Debrox Otic] 5 drops BOTH EARS BID #15 ml Furosemide [Lasix] 20 mg PO DAILY #5 tab Is patient prescribed a controlled substance at d/c from ED?: No Referrals: Stefano Holguin MD [Primary Care Provider] - 1-2 days Time of Disposition: 23:38
[2023-02-09 23:45] VITALS: BP 138/79; PULSE 72; RESP 18; TEMP 98.1
== END 2023-02-09 23:46 | disposition home or self-care (01) ==
LOC: EC 18:46
DX: R42 Dizziness and giddiness (principal); I10 Essential (primary) hypertension; F41.9 Anxiety disorder, unspecified; F12.90 Cannabis use, unspecified, uncomplicated; Z87.891 Personal history of nicotine dependence; Z79.899 Other long term (current) drug therapy; Z91.041 Radiographic dye allergy status
CPT/HCPCS: 36415; 80053; 84484; 85025; 93005; 99284

== ENCOUNTER 2023-02-10 00:39 | Observation (INO) | payer MEDICARE, BC ==
[2023-02-10] MEDS ORDERED: SODIUM CHLORIDE 0.9% 1,000 ML IV STA (01:18)
--- NOTE | 2023-02-10 01:20 | ED ---
Headache HPI - General Chief Complaint: Headache Stated Complaint: Dizziness, headache Time Seen by Provider: 02/10/23 00:54 Source: RN notes reviewed, old records reviewed Mode of arrival: wheelchair Limitations: no limitations - History of Present Illness Initial Comments: This is a 67-year-old female to the emergency department complaining of headach e. She presents today for evaluation, patient presents us in regards to evaluation in regards to headaches severe headache. Patient was in the ER earlier today with diagnosis of vertigo. Patient has persistent vertigo here in the ER with severe headache. Patient has history of high blood pressure MD Complaint: headache, "migraine", other -: hour(s) Onset Description: gradual Location: right, left, occipital Severity: severe Severity scale (1-10): 8 Quality: throbbing, pulsatile, full, constant Consistency: constant Improves With: nothing Worsens With: none Associated Symptoms: nausea - Related Data Home Medications Medication Instructions Recorded Confirmed ALPRAZolam [Xanax] 0.25 mg PO TID PRN 02/10/23 02/10/23 Fluticasone Propionate 2 spray EA NOSTRIL DAILY PRN 02/10/23 02/10/23 Losartan [Cozaar] 50 mg PO BID 02/10/23 02/10/23 amLODIPine [Norvasc] 5 mg PO DAILY 02/10/23 02/10/23 Previous Rx's Medication Instructions Recorded Meclizine [Antivert] 12.5 mg PO Q8HR #14 tablet 02/10/23 Allergies Allergy/AdvReac Type Severity Reaction Status Date / Time Iodinated Contrast Media Allergy Rapid Verified 02/10/23 06:54 Heart Rate z Allergy Rapid Uncoded 12/03/22 16:17 Heart Rate Review of Systems ROS Statement: Those systems with pertinent positive or pertinent negative responses have been documented in the HPI. ROS Other: All systems not noted in ROS Statement are negative. Past Medical History Past Medical History: Cancer, Hypertension Additional Past Medical History / Comment(s): lymphnode cancer, endometriosis History of Any Multi-Drug Resistant Organisms: None Reported Additional Past Surgical History / Comment(s): endometriosis surgery-removed a mass, cyst removal on right wrist Past Psychological History: Anxiety Smoking Status: Former smoker Past Alcohol Use History: Daily Past Drug Use History: Marijuana General Exam Limitations: no limitations General appearance: alert, in no apparent distress Head exam: Present: atraumatic, normocephalic, normal inspection Eye exam: Present: normal appearance, PERRL, EOMI. Absent: scleral icterus, conjunctival injection, periorbital swelling ENT exam: Present: normal exam, mucous membranes moist Neck exam: Present: normal inspection. Absent: tenderness, meningismus, lymphadenopathy Respiratory exam: Present: normal lung sounds bilaterally. Absent: respiratory distress, wheezes, rales, rhonchi, stridor Cardiovascular Exam: Present: regular rate, normal rhythm, normal heart sounds. Absent: systolic murmur, diastolic murmur, rubs, gallop, clicks GI/Abdominal exam: Present: soft, normal bowel sounds. Absent: distended, tenderness, guarding, rebound, rigid Extremities exam: Present: normal inspection, full ROM, normal capillary refill. Absent: tenderness, pedal edema, joint swelling, calf tenderness Back exam: Present: normal inspection Neurological exam: Present: alert, oriented X3, CN II-XII intact Psychiatric exam: Present: normal affect, normal mood Skin exam: Present: warm, dry, intact, normal color. Absent: rash Course Vital Signs 02/10/23 02/10/23 02/10/23 00:47 01:40 03:00 Temperature 98.2 F Pulse Rate 86 86 75 Pulse Rate [ Pulse Oximetery ] Respiratory 18 14 15 Rate Blood Pressure 163/96 148/91 148/91 Blood Pressure [Left Arm] O2 Sat by Pulse 98 96 96 Oximetry 02/10/23 02/10/23 02/10/23 04:00 05:00 06:34 Temperature Pulse Rate 67 64 Pulse Rate [ Pulse Oximetery ] Respiratory 45 H 16 16 Rate Blood Pressure 121/80 117/72 129/81 Blood Pressure [Left Arm] O2 Sat by Pulse 96 95 95 Oximetry 02/10/23 07:00 Temperature 97.4 F L Pulse Rate Pulse Rate [ 74 Pulse Oximetery ] Respiratory 20 Rate Blood Pressure Blood Pressure 151/92 [Left Arm] O2 Sat by Pulse 98 Oximetry - Reevaluation(s) Reevaluation #1: 02/10/23 02:20 Medical record is reviewed Reevaluation #2: 02/10/23 05:58 Patient still significantly dizzy unable to stand unable to ambulate Reevaluation #3: 02/10/23 05:58 Patient informed results and questions answered Reevaluation #4: 02/10/23 02:22 Was pt. sent in by a medical professional or institution (, RED, OIL FIELD ROUSTABOUT, urgent care, hospital, or usp...) When possible be specific @ -no Did you speak to anyone other than the patient for history (EMS, parent, family, police, friend...)? What history was obtained from this source @ -no Did you review nursing and triage notes (agree or disagree)? Why? @ -agree Are old charts reviewed (outside hosp., previous admission, EMS record, old EKG, old radiological studies, urgent care reports/EKG's, usp records)? Report findings @ -yes Differential Diagnosis (chest pain, altered mental status, abdominal pain women, abdominal pain men, vaginal bleeding, weakness, fever, dyspnea, syncope, headache, dizziness, GI bleed, back pain, seizure, CVA, palpatations, mental health, musculoskeletal)? @ -prior EKG interpreted by me (3pts min.). @ -yes X-rays interpreted by me (1pt min.). @ -no CT interpreted by me (1pt min.). @ -yes U/S interpreted by me (1pt. min.). @ -no What testing was considered but not performed or refused? (CT, X-rays, U/S, lab s)? Why? @ -none What meds were considered but not given or refused? Why? @ -none Did you discuss the management of the patient with other professionals (professionals i.e. RED Desai, OIL FIELD ROUSTABOUT, lab, RT, psych nurse, nursing home social worker, special needs teacher, teacher, aadc plans staff officer, disease case manager rn)? Give summary @ -no Was smoking cessation discussed for >3mins.? @ -no Was critical care preformed (if so, how long)? @ -no Were there social determinants of health that impacted care today? How? (Homelessness, low income, unemployed, alcoholism, drug addiction, transportation, low edu. Level, literacy, decrease access to med. care, assisted, rehab)? @ -none Was there de-escalation of care discussed even if they declined (Discuss DNR or withdrawal of care, Hospice)? DNR status @ -no What co-morbidities impacted this encounter? (DM, HTN, Smoking, COPD, CAD, Cancer, CVA, ARF, Chemo, Hep., AIDS, mental health diagnosis, sleep apnea, morbid obesity)? @ -none Was patient admitted / discharged? Hospital course, mention meds given and route, prescriptions, significant lab abnormalities, going to OR and other pertinent info. @ - 67 female to the emergency department today for evaluation patient presents today for evaluation of persistent vertigo with prior discharged earlier today patient went home and was still significantly spinning around unable stand up and able to balance. Patient also developed a severe headache and presents to the emergency department for the above. Patient has testing, CT scanning negati ve here for acute disease but will be admitted for neurology evaluation regarding possibility of posterior CVA and central vertiginous cause Admitted Undiagnosed new problem with uncertain prognosis? @ -no Drug Therapy requiring intensive monitoring for toxicity (Heparin, Nitro, Insulin, Cardizem)? @ -no Were any procedures done? @ -no Diagnosis/symptom? @ -Vertigo, dizziness, unable to ambulate Acute, or Chronic, or Acute on Chronic? @ -Acute Uncomplicated (without systemic symptoms) or Complicated (systemic symptoms)? @ -Complicated Side effects of treatment? @ -no Exacerbation, Progression, or Severe Exacerbation? @ -exacerbation Poses a threat to life or bodily function? How? (Chest pain, [place], [place], pneumonia, PE, COPD, DKA, ARF, appy, cholecystitis, CVA, Diverticulitis, Homicidal, Suicidal, threat to staff... and all critical care pts) @ -yes Reevaluation #5: 02/10/23 02:22 Differential Dizziness: Benign paroxysmal positional Vertigo, Menieres disease, otitis media, acoustic neuroma, vertebrobasilar insufficiency, cerebellar stroke, encephalitis, hypovolemic, arrhythmia, coronary artery syndrome, anemia, this is not meant to be an all-inclusive list - Consultations Consultation #1: Spoke admitting physicians agree to admit this patient Medical Decision Making - Medical Decision Making 67 female to the emergency department today for evaluation patient presents today for evaluation of persistent vertigo with prior discharged earlier today patient went home and was still significantly spinning around unable stand up and able to balance. Patient also developed a severe headache and presents to the emergency department for the above. Patient has testing, CT scanning negative here for acute disease but will be admitted for neurology evaluation regarding possibility of posterior CVA and central vertiginous cause - Lab Data Result diagrams: 02/10/23 01:21 02/10/23 01:21 Lab Results 02/10/23 02/10/23 02/10/23 Range/Units 01:21 01:21 01:21 WBC 8.4 (3.8-10.6) k/uL RBC 4.54 (3.80-5.40) m/uL Hgb 14.2 (11.4-16.0) gm/dL Hct 41.8 (34.0-46.0) % MCV 92.1 (80.0-100.0) fL MCH 31.3 (25.0-35.0) pg MCHC 34.0 (31.0-37.0) g/dL RDW 13.4 (11.5-15.5) % Plt Count 182 (150-450) k/uL MPV 6.8 Neutrophils % 71 % Lymphocytes % 21 % Monocytes % 5 % Eosinophils % 2 % Basophils % 0 % Neutrophils # 5.9 (1.3-7.7) k/uL Lymphocytes # 1.8 (1.0-4.8) k/uL Monocytes # 0.4 (0-1.0) k/uL Eosinophils # 0.1 (0-0.7) k/uL Basophils # 0.0 (0-0.2) k/uL PT 10.1 (9.0-12.0) sec INR 0.9 (<1.2) APTT 24.5 (22.0-30.0) sec Sodium 138 (137-145) mmol/L Potassium 4.0 (3.5-5.1) mmol/L Chloride 106 (98-107) mmol/L Carbon Dioxide 23 (22-30) mmol/L Anion Gap 9 mmol/L BUN 14 (7-17) mg/dL Creatinine 0.69 (0.52-1.04) mg/dL Est GFR (CKD-EPI)AfAm >90 (>60 ml/min/1.73 sqM) Est GFR (CKD-EPI)NonAf 89 (>60 ml/min/1.73 sqM) Glucose 129 H (74-99) mg/dL Calcium 8.9 (8.4-10.2) mg/dL Total Bilirubin 0.7 (0.2-1.3) mg/dL AST 23 (14-36) U/L ALT 25 (4-34) U/L Alkaline Phosphatase 72 (38-126) U/L Creatine Kinase 99 (30-135) U/L Troponin I (0.000-0.034) ng/mL Total Protein 7.6 (6.3-8.2) g/dL Albumin 4.4 (3.5-5.0) g/dL 02/10/23 Range/Units 01:21 WBC (3.8-10.6) k/uL RBC (3.80-5.40) m/uL Hgb (11.4-16.0) gm/dL Hct (34.0-46.0) % MCV (80.0-100.0) fL MCH (25.0-35.0) pg MCHC (31.0-37.0) g/dL RDW (11.5-15.5) % Plt Count (150-450) k/uL MPV Neutrophils % % Lymphocytes % % Monocytes % % Eosinophils % % Basophils % % Neutrophils # (1.3-7.7) k/uL Lymphocytes # (1.0-4.8) k/uL Monocytes # (0-1.0) k/uL Eosinophils # (0-0.7) k/uL Basophils # (0-0.2) k/uL PT (9.0-12.0) sec INR (<1.2) APTT (22.0-30.0) sec Sodium (137-145) mmol/L Potassium (3.5-5.1) mmol/L Chloride (98-107) mmol/L Carbon Dioxide (22-30) mmol/L Anion Gap mmol/L BUN (7-17) mg/dL Creatinine (0.52-1.04) mg/dL Est GFR (CKD-EPI)AfAm (>60 ml/min/1.73 sqM) Est GFR (CKD-EPI)NonAf (>60 ml/min/1.73 sqM) Glucose (74-99) mg/dL Calcium (8.4-10.2) mg/dL Total Bilirubin (0.2-1.3) mg/dL AST (14-36) U/L ALT (4-34) U/L Alkaline Phosphatase (38-126) U/L Creatine Kinase (30-135) U/L Troponin I <0.012 (0.000-0.034) ng/mL Total Protein (6.3-8.2) g/dL Albumin (3.5-5.0) g/dL - EKG Data -: EKG Interpreted by Me (EKG is sinus 86 IN 194 QRS 107 QTC 404) - Radiology Data Radiology results: report reviewed (CT brain CT angios head neck is negative for acute disease), image reviewed Disposition Clinical Impression: Headache, Vertigo, Dizziness Disposition: ADMITTED IP TO THIS [facility] Condition: Fair Is patient prescribed a controlled substance at d/c from ED?: No Time of Disposition: 06:00
[2023-02-10 01:32] LABS: Basophils % (A) 0 %; Eosinophils # (A) 0.1 k/uL (0-0.7); Eosinophils % (A) 2 %; HCT 41.8 % (34.0-46.0); HGB 14.2 gm/dL (11.4-16.0); Lymphocytes # (A) 1.8 k/uL (1.0-4.8); Lymphocytes % (A) 21 %; MCH 31.3 pg (25.0-35.0); MCV 92.1 fL (80.0-100.0); Mean Platelet Volume 6.8; Monocytes # (A) 0.4 k/uL (0-1.0); Monocytes % (A) 5 %; Neutrophils # (A) 5.9 k/uL (1.3-7.7); Neutrophils % (A) 71 %; Platelet Count 182 k/uL (150-450); RBC 4.54 m/uL (3.80-5.40); RDW 13.4 % (11.5-15.5); WBC 8.4 k/uL (3.8-10.6)
[2023-02-10 01:48] LABS: INR 0.9 (<1.2); Partial Thromboplastin Time 24.5 sec (22.0-30.0); Prothrombin Time 10.1 sec (9.0-12.0)
[2023-02-10 01:49] LABS: ALT 25 U/L (4-34); AST 23 U/L (14-36); African American GFR (CKD) >90 (>60 ml/min/1.73 sqM); Albumin 4.4 g/dL (3.5-5.0); Alkaline Phosphatase 72 U/L (38-126); Anion Gap 9 mmol/L; Blood Urea Nitrogen 14 mg/dL (7-17); Calcium 8.9 mg/dL (8.4-10.2); Carbon Dioxide 23 mmol/L (22-30); Chloride 106 mmol/L (98-107); Creatine Kinase 99 U/L (30-135); Glucose 129 mg/dL (74-99); Non-African American GFR(CKD) 89 (>60 ml/min/1.73 sqM); Sodium 138 mmol/L (137-145); Total Bilirubin 0.7 mg/dL (0.2-1.3); Total Protein 7.6 g/dL (6.3-8.2)
[2023-02-10] MEDS ORDERED: FAMOTIDINE 20 MG/2 ML VIAL IV STA (02:05)
[2023-02-10] MEDS ORDERED: methylPREDNISolone SOD SUCCI 125 MG/2 ML VIAL IV STA (02:05)
[2023-02-10] MEDS ORDERED: diphenhydrAMINE 50 MG/ML 1 ML VIAL IVP STA (02:05)
[2023-02-10] MEDS ORDERED: MORPHINE SULFATE 4 MG/ML SYRINGE IV PRN (05:53)
[2023-02-10] MEDS ORDERED: ONDANSETRON 4 MG/2 ML VIAL IVP PRN (05:53)
[2023-02-10] MEDS ORDERED: NALOXONE 0.4 MG/ML 1 ML VIAL IV PRN (05:53)
[2023-02-10] MEDS ORDERED: SODIUM CHLORIDE 0.9% 1,000 ML IV SCH (06:00)
--- NOTE | 2023-02-10 07:12 | CT ---
EXAMINATION TYPE: CT brain wo con DATE OF EXAM: 02/10/2023 COMPARISON: None HISTORY: Neuro deficit, acute, stroke suspected Unenhanced CT of the brain was performed. The ventricles, basal cisterns and sulci overlying the cerebral convexities demonstrate mild enlargem ent. There is no evidence for intracranial hemorrhage or sulcal effacement. There is decreased attenuation about the periventricular white matter and deep white matter of both c erebral hemispheres, compatible with chronic small vessel ischemia. Differential diagnosis does inclu de demyelination. No mass effects are seen.No midline shift. Osseous calvarium is intact. If symptoms persist consider MRI. IMPRESSION: 1. Age related atrophic and chronic small vessel ischemic change without acute intracranial process s een at this time.
[2023-02-10 08:15] VITALS: BP 151/92; PULSE 74; RESP 20; TEMP 97.4
--- NOTE | 2023-02-10 08:54 | CT ---
EXAMINATION TYPE: CT angio head neck CT DLP: 1756.5 mGycm, Automated exposure control for dose reduction was used. DATE OF EXAM: 02/10/2023 8:19 AM COMPARISON: CT brain 02/10/2023. CLINICAL INDICATION:Female, 67 years old with history of Neuro deficit, acute, stroke suspected; [facility], TECHNIQUE: Axially acquired helical CT angiogram of the head and neck was obtained with contrast util izing 75 cc of Isovue-370 administered intravenously. Axial images are supplemented with 3D reconstru ctions which were post-processed at an independent workstation. NASCET criteria used. Patient was pre medicated. FINDINGS: CTA HEAD: No evidence of acute intracranial hemorrhage, mass effect, or midline shift. The ventricles, sulci, a nd cisterns are unremarkable. The visualized portions of the internal carotid arteries, middle cerebral arteries, anterior cerebral arteries, and posterior cerebral arteries are patent. The basilar and vertebral arteries are patent. Right vertebral artery is dominant. CTA NECK: Right Carotid System: The common carotid artery and external carotid artery are patent. Medial deviation of the internal ca rotid artery. The carotid bifurcation demonstrates no evidence of hemodynamically significant stenosi s. The remaining portions of the internal carotid artery demonstrate normal size without significant narrowing. Left Carotid System: The common carotid artery and external carotid artery are patent. The carotid bifurcation demonstrate s no evidence of hemodynamically significant stenosis. The remaining portions of the internal carotid artery demonstrate normal size without significant narrowing. Vertebral arteries are patent without evidence hemodynamically significant stenosis. There is a bovine aortic arch. The origins of the great vessels are patent. No evidence of hemodynami pura significant stenosis. IMPRESSION: 1. No evidence of dissection of the cervical internal carotid arteries or vertebral arteries or any e vidence of significant stenosis at the carotid bifurcations. 2. No evidence of high-grade stenosis or intracranial aneurysm.
[2023-02-10] MEDS ORDERED: ALPRAZolam 0.25 MG TAB PO PRN (10:56)
[2023-02-10] MEDS ORDERED: amLODIPine 5 MG TAB PO SCH (11:00)
[2023-02-10] MEDS ORDERED: LOSARTAN 50 MG TAB PO SCH (11:00)
[2023-02-10] MEDS ORDERED: ENOXAPARIN 40 MG/0.4 ML SYRINGE SQ SCH (11:30)
[2023-02-10] MEDS ORDERED: MECLIZINE 25 MG TAB PO STA (11:32)
--- NOTE | 2023-02-10 18:02 | P.HPIM ---
History of Present Illness H&P Date: 02/10/23 Chief Complaint: Room spinning This is a pleasant 67-year-old patient, follows with Dr. Stefano Holguin. Patient had non-Hodgkin's lymphoma treated with chemotherapy back in 2018. Does have synovitis every year to low has been doing fine. Patient also has endometriosis of bleeding and is due to follow up any new was to [place]. Patient lost her cat day before and patient been crying rather incessantly. Patient also takes steroid for ALLERGIC rhinitis. She got up yesterday morning feeling really blocked in both the ears. And then she also felt the ear was plugged. No fever no chills. Then she noticed that she started getting dizzy in the room was spinning. She did come to the ER here and had some earwax removed. [place] better. When back in the car and going home again get dizzy again. Decided to come back to the ER. No change in vision. No change in sp eech, movement is related to the symptoms. Review of systems: GEN.: No fever no chills EYES: None HEENT: As above NECK: None RESPIRATORY: None CARDIOVASCULAR: None GASTROINTESTINAL: None GENITOURINARY: None MUSCULOSKELETAL: None LYMPHATICS: None HEMATOLOGICAL: None PSYCHIATRY: None NEUROLOGICAL: As above Past medical history to include: Non-Hodgkin's lymphoma. Endometriosis. ALLERGIC rhinitis. Anxiety Social history: Patient has couple of drinks at night. Did smoke in the remote past. . Physical examination: VITAL SIGNS: 97.4, 74, 20, 129/81, 98% room air GENERAL: BMI 32.8, declining a bit of a comfortable. EYES: Pupils equal. Conjunctiva normal. HEENT: External appearance of nose and ears normal, oral cavity grossly normal. NECK: JVD not raised; masses not palpable. HEART: First and second heart sounds are normal; no edema. LUNGS: Respiratory rate normal; clear to auscultation. ABDOMEN: Soft, nontender, liver spleen not palpable, no masses palpable. PSYCH: Alert and oriented x3; mood and affect normal. MUSCULOSKELETAL:No Clubbing/cyanosis;muscles-grossly intact NEUROLOGICAL: Cranial nerves grossly intact; no facial asymmetry, power and sensation grossly intact. No nystagmus. No distal hypokinesia. No past pointing. Speech normal. LYMPHATICS: No lymph nodes palpable in the axilla and neck INVESTIGATIONS, reviewed in the clinical context: White count 8.4 hemoglobin 14.2 platelets 182 sodium 138 potassium 4.0 crit 0.69 Troponin I less than 0.012 EKG tracing personally reviewed by me-normal sinus rhythm. CT brain: Age-related changes. CT angiogram pain: Unremarkable no stenosis. Assessment per plan: -Acute episode of vertigo. Room spinning. Patient been crying excessively because of loss of her cat. Very congested. Feels fullness in the ears. Has ALLERGIC rhinitis. This is likely acute vestibulitis. Has no cerebellar signs. Computed tomography scan is negative. Patient be given 1 dose of Antivert. 25 mg. -Chronic ALLERGIC rhinitis Continue nasal spray Discussed with patient at length. Remains stable given discharge later today. Past Medical History Past Medical History: Cancer, Hypertension Additional Past Medical History / Comment(s): lymphnode cancer, endometriosis History of Any Multi-Drug Resistant Organisms: None Reported Additional Past Surgical History / Comment(s): endometriosis surgery-removed a mass, cyst removal on right wrist Past Psychological History: Anxiety Smoking Status: Former smoker Past Alcohol Use History: Daily Past Drug Use History: Marijuana Medications and Allergies Home Medications Medication Instructions Recorded Confirmed Type ALPRAZolam [Xanax] 0.25 mg PO TID PRN 02/10/23 02/10/23 History Fluticasone Propionate 2 spray EA NOSTRIL DAILY PRN 02/10/23 02/10/23 History Losartan [Cozaar] 50 mg PO BID 02/10/23 02/10/23 History Meclizine [Antivert] 12.5 mg PO Q8HR #14 tablet 02/10/23 Rx amLODIPine [Norvasc] 5 mg PO DAILY 02/10/23 02/10/23 History Allergies Allergy/AdvReac Type Severity Reaction Status Date / Time Iodinated Contrast Media Allergy Rapid Verified 02/10/23 06:54 Heart Rate z Allergy Rapid Uncoded 12/03/22 16:17 Heart Rate Physical Exam Vitals: Vital Signs Temp Pulse Pulse Resp BP BP Pulse Ox 02/10/23 07:00 97.4 F L 74 20 151/92 98 02/10/23 06:34 64 16 129/81 95 02/10/23 05:00 67 16 117/72 95 02/10/23 04:00 45 H 121/80 96 02/10/23 03:00 75 15 148/91 96 02/10/23 01:40 86 14 148/91 96 02/10/23 00:47 98.2 F 86 18 163/96 98 Intake and Output 02/09/23 02/10/23 02/10/23 22:59 06:59 14:59 Other: Weight 92.079 kg Results CBC & Chem 7: 02/10/23 01:21 02/10/23 01:21 Labs: Abnormal Lab Results - Last 24 Hours (Table) 02/10/23 Range/Units 01:21 Glucose 129 H (74-99) mg/dL Thrombosis Risk Factor Assmnt - Choose All That Apply Each Risk Factor Represents 2 Points: Age 61-74 years Thrombosis Risk Factor Assessment Total Risk Factor Score: 2 Thrombosis Risk Factor Assessment Level: Low Risk
--- NOTE | 2023-02-10 18:03 | P.DS ---
Providers Date of admission: 02/10/23 05:55 Expected date of discharge: 02/10/23 Attending physician: Jason Becker Consults: 02/10/23 05:53 Consult Physician Routine Consulting Provider: Tin Ware Consult Reason/Comments: cva Do you want consulting provider notified?: Yes Primary care physician: Stefano Holguin MD Hospital Course: Chief Complaint: Room spinning This is a pleasant 67-year-old patient, follows with Dr. Stefano Holguin. Patient had non-Hodgkin's lymphoma treated with chemotherapy back in 2018. Does have synovitis every year to [facility] has been doing fine. Patient also has endometriosis of bleeding and is due to follow up any new was to [place]. Patient lost her cat day before and patient been crying rather incessantly. Patient also takes steroid for ALLERGIC rhinitis. She got up yesterday morning feeling really blocked in both the ears. And then she also felt the ear was plugged. No fever no chills. Then she noticed that she started getting dizzy in the room was spinning. She did come to the ER here and had some earwax removed. [place] better. When back in the car and going home again get dizzy again. Decided to come back to the ER. No change in vision. No change in speech, movement is related to the symptoms. Patient was given Antivert. Doing better. Past medical history to include: Non-Hodgkin's lymphoma. Endometriosis. ALLERGIC rhinitis. Anxiety Social history: Patient has couple of drinks at night. Did smoke in the remote past. . Physical examination: VITAL SIGNS: 97.4, 74, 20, 129/81, 98% room air GENERAL: BMI 32.8, declining a bit of a comfortable. EYES: Pupils equal. Conjunctiva normal. HEENT: External appearance of nose and ears normal, oral cavity grossly normal. NECK: JVD not raised; masses not palpable. HEART: First and second heart sounds are normal; no edema. LUNGS: Respiratory rate normal; clear to auscultation. ABDOMEN: Soft, nontender, liver spleen not palpable, no masses palpable. PSYCH: Alert and oriented x3; mood and affect normal. MUSCULOSKELETAL:No Clubbing/cyanosis;muscles-grossly intact NEUROLOGICAL: Cranial nerves grossly intact; no facial asymmetry, power and sensation grossly intact. No nystagmus. No distal hypokinesia. No past pointing. Speech normal. LYMPHATICS: No lymph nodes palpable in the axilla and neck INVESTIGATIONS, reviewed in the clinical context: White count 8.4 hemoglobin 14.2 platelets 182 sodium 138 potassium 4.0 crit 0.69 Troponin I less than 0.012 EKG tracing personally reviewed by me-normal sinus rhythm. CT brain: Age-related changes. CT angiogram pain: Unremarkable no stenosis. Assessment per plan: -Acute episode of vertigo. Room spinning. Patient been crying excessively because of loss of her cat. Very congested. Feels fullness in the ears. Has ALLERGIC rhinitis. This is likely acute vestibulitis. Has no cerebellar signs. Computed tomography scan is negative. Patient be given 1 dose of Antivert. 25 mg. to take 12.5 mg 3 times a day for 3 doses. Then when necessary. Patient does steam inhalation at home. Discussed. Questions answered. -Chronic ALLERGIC rhinitis Continue nasal spray Disposition: Home Plan - Discharge Summary Discharge Rx Participant: No New Discharge Prescriptions: New Meclizine [Antivert] 12.5 mg PO Q8HR #14 tablet Continue Losartan [Cozaar] 50 mg PO BID ALPRAZolam [Xanax] 0.25 mg PO TID PRN PRN Reason: Anxiety Fluticasone Propionate 2 spray EA NOSTRIL DAILY PRN PRN Reason: Congestion amLODIPine [Norvasc] 5 mg PO DAILY Discharge Medication List ALPRAZolam [Xanax] 0.25 mg PO TID PRN 02/10/23 [History] Fluticasone Propionate 2 spray EA NOSTRIL DAILY PRN 02/10/23 [History] Losartan [Cozaar] 50 mg PO BID 02/10/23 [History] Meclizine [Antivert] 12.5 mg PO Q8HR #14 tablet 02/10/23 [Rx] amLODIPine [Norvasc] 5 mg PO DAILY 02/10/23 [History] Follow up Appointment(s)/Referral(s): Stefano Holguin MD [Primary Care Provider] - 1-2 days Patient Instructions/Handouts: Vertigo (DC)
== END 2023-02-10 13:20 | disposition home or self-care (01) ==
LOC: EC 00:39 → 6NMEDSUR 05:55
PROVIDERS: ADMIT Hospitalist; ATTEND Hospitalist
DX: J30.9 Allergic rhinitis, unspecified (principal); I10 Essential (primary) hypertension; N80.9 Endometriosis, unspecified; Z92.21 Personal history of antineoplastic chemotherapy; Z85.72 Personal history of non-Hodgkin lymphomas; Z79.51 Long term (current) use of inhaled steroids; Z79.899 Other long term (current) drug therapy; Z87.891 Personal history of nicotine dependence; F41.9 Anxiety disorder, unspecified; Z88.8 Allergy status to other drugs, medicaments and biological substances
CPT/HCPCS: 96361; 96374; 96375; 99285; 36415; 93005; 80053; 82550; 84484; 85025; 85610; 85730; 70496; 70450; 70498; G0378; J1200; J2930; J3360; J3490; Q9967

== ENCOUNTER → 2023-08-24 | Outpatient (CLI) | payer MEDICARE, BC ==
--- NOTE | 2023-08-24 11:30 | P.PN ---
Subjective DATE: 08/24/2023 FOLLOW UP VISIT. Patient with obstructive sleep apnea hypopnea syndrome return to sleep center for follow-up visit. Information from previous visit have been reviewed. Patient is using PAP equipment every night for the whole night, getting PAP supplies in time. The patient does not have significant problems with the mask, PAP unit and humidification. [place] sleepiness scale is 7, which is normal. I checked information from PAP unit. PAP unit pressure 5-9, average 8.2 cm H2O. Usage is 97% and 87 % for more then 4 hours, average 5.8 hours per night. Leak is 8.5 l/m, which is in acceptable range. Apnea Hypopnea Index is 0.3, which is normal. MEDICATIONS:1. Losartan 2. Amlodipine 5 mg once a day 3. Xanax 0.25 mg as needed 4. Fluticasone spray During physical exam: GENERAL: A pleasant patient without any distress. VITAL SIGNS: BP 147/93, HR 66, RR 16, weight 208, temperature 98, oxygen saturation at room air 97 % . HEENT: PERRLA, EOMI.low position of soft palate, [place] 2-3 . NECK: Supple. No JVD. LUNGS: Clear to percussion and to auscultation. Good air exchange. No wheezing or rhonchi. HEART: S1, S2 regular. ABDOMEN: Soft and nontender.[] EXTREMITIES: No clubbing or cyanosis. PHARMACY RESIDENT: Awake, alert, and oriented x3. No focal deficit. Impressions: 1. Obstructive sleep apnea-hypopnea syndrome. Patient demonstrated great compliance with treatment, benefiting from treatment. 2. Hypertension. 3. History of anxiety. 4. History of follicular lymphoma treated by chemotherapy in 2018. 5. Status post bilateral cataract surgery. 6. Status post surgical treatment for endometriosis. Plan: 1. Continue using PAP equipment every night for the whole night. 2. To change air filter at least 1-2 times per month. 3. PAP unit should stay lower then position of the head. 4. Advised patient to remove all remaining water from humidifier canister daily and make it dry after each usage. Refill canister with fresh distilled water before each usage. 5. Sleep hygiene with regular time in bed for at least 8 hours. 6. Precautions related to driving. No driving if feel any sleepiness. 7. I will maintain prescription for PAP supplies including mask, tube, filters. 8. Follow up visit in 6 months or earlier if patient has any problems. 9. Watching and losing weight. Thank you very much for allowing me to participate in the management of your patient. Kota Argueta MD, PhD, FAASM. Diplomat of [place] [employer], Sleep Medicine Board by [place] [employer] of [facility] [place]
== END ==
LOC: 3 N SLEEP 10:56
PROVIDERS: ATTEND Internal Medicine
DX: G47.33 Obstructive sleep apnea (adult) (pediatric) (principal); I10 Essential (primary) hypertension; F41.9 Anxiety disorder, unspecified; Z85.72 Personal history of non-Hodgkin lymphomas; Z92.21 Personal history of antineoplastic chemotherapy; Z79.899 Other long term (current) drug therapy; Z98.890 Other specified postprocedural states; Z99.89 Dependence on other enabling machines and devices; Z98.41 Cataract extraction status, right eye; Z98.42 Cataract extraction status, left eye; Z91.041 Radiographic dye allergy status; Z88.8 Allergy status to other drugs, medicaments and biological substances
CPT/HCPCS: 99212

== ENCOUNTER → 2024-04-25 | Outpatient (CLI) | payer MEDICARE, BC ==
[2024-04-25 16:02] VITALS: BP 196/104; PULSE 78; RESP 16; TEMP 97.9
--- NOTE | 2024-05-16 11:55 | P.PROGSL ---
Subjective DATE: 04/25/2024 FOLLOW UP VISIT. Patient with obstructive sleep apnea hypopnea syndrome return to sleep center for follow-up visit. Information from previous visit have been reviewed. Patient is using PAP equipment every night for the whole night, getting PAP supplies in time. The patient does not have significant problems with the mask, PAP unit and humidification. [place] sleepiness scale is 3, which is normal. I checked information from PAP unit. PAP unit pressure 5-9, average 8.1 cm H2O. Usage is 83% for more then 4 hours, average 4.5 hours per night. Leak is 7.5 l/m, which is in acceptable range. Apnea Hypopnea Index is 0.3, which is normal. MEDICATIONS have been reviewed, please see below. During physical exam: GENERAL: A pleasant patient without any distress. VITAL SIGNS: Please see below, weight is 204.8 lbs. HEENT: PERRLA, EOMI.low position of soft palate, [place]ati 23. NECK: Supple. No JVD. LUNGS: Clear to percussion and to auscultation. Good air exchange. No wheezing or rhonchi. HEART: S1, S2 regular. ABDOMEN: Soft and nontender.[] EXTREMITIES: No clubbing or cyanosis. PRECISION INSTRUMENT MAKER: Awake, alert, and oriented x3. No focal deficit. Impressions: 1. Obstructive sleep apnea-hypopnea syndrome. Patient demonstrated great compliance with treatment, benefiting from treatment. 2. Mild obesity, BMI 32.9. 3. Hypertension. 4. History of anxiety. 5. History of follicular lymphoma. 6. Status post bilateral cataract surgery. Plan: 1. Continue using PAP equipment every night for the whole night. 2. Sleep hygiene with regular time in bed for at least 7.5-8 hours 3. PAP unit should stay lower then position of the head. 4. Advised patient to remove all remaining water from humidifier canister daily and make it dry after each usage. Refill canister with fresh distilled water before each usage. 5. Watching weight. 6. Precautions related to driving. No driving if feel any sleepiness. 7. I will maintain prescription for PAP supplies including mask, tube, filters. 8. Follow up visit in 8 months or earlier if patient has any problems. Thank you very much for allowing me to participate in the management of your patient. Kota Argueta MD, PhD, FAASM. Diplomat of [place] [employer], Sleep Medicine Board by [place] [employer] of [facility] [place] Objective - Vital Signs Vital Signs: Vital Signs Temp 97.9 F 04/25/24 15:56 Pulse 78 04/25/24 15:56 Resp 16 04/25/24 15:56 BP 196/104 04/25/24 15:56 Pulse Ox 95 04/25/24 15:56 FiO2 Home Medications: Home Medications Medication Instructions Recorded Confirmed Type ALPRAZolam [Xanax] 0.25 mg PO TID PRN 02/10/23 04/25/24 History Fluticasone Propionate 2 spray EA NOSTRIL DAILY PRN 02/10/23 04/25/24 History [Fluticasone Propionate Nasal [place]] Losartan [Cozaar] 50 mg PO BID 02/10/23 02/10/23 History Meclizine [Antivert] 12.5 mg PO Q8HR #14 tablet 02/10/23 Rx amLODIPine [Norvasc] 5 mg PO DAILY 02/10/23 02/10/23 History Losartan Potassium 50 mg PO BID 04/25/24 04/25/24 History amLODIPine BESYLATE 5 mg PO DAILY 04/25/24 04/25/24 History
== END ==
LOC: 3 N SLEEP 14:58
PROVIDERS: ATTEND Internal Medicine
DX: G47.33 Obstructive sleep apnea (adult) (pediatric) (principal); E66.9 Obesity, unspecified; Z68.32 Body mass index [BMI] 32.0-32.9, adult; I10 Essential (primary) hypertension; Z99.89 Dependence on other enabling machines and devices; Z98.41 Cataract extraction status, right eye; Z98.42 Cataract extraction status, left eye; Z91.041 Radiographic dye allergy status; Z85.72 Personal history of non-Hodgkin lymphomas; Z86.59 Personal history of other mental and behavioral disorders
CPT/HCPCS: 99212